=== PATIENT | male | born 1950 | race Caucasian/White ===

== ENCOUNTER 2024-01-20 21:37 | Emergency (ER) | payer MEDICARE, OTHER ==
--- NOTE | 2024-01-20 21:43 | ED ---
GI Bleed HPI - General Stated complaint: GI issues Time Seen by Provider: 01/20/24 21:42 Source: RN notes reviewed, old records reviewed Mode of arrival: EMS Limitations: no limitations - History of Present Illness Initial comments: This is a 73-year-old male presenting for evaluation regards to history per staff of coffee-ground emesis. Patient has no pain or observed hematemesis here in the emergency department he does have history of GI bleed. No blood thinners. Patient has no complaints, patient is a mildly poor historian history obtained from staff records and EMS MD complaint: coffee ground emesis -: hour(s) Severity scale (1-10): 3 Quality: painless Consistency: constant Improves with: none, bowel movement Worsens with: none Context: history of GI bleed Associated Symptoms: nausea, vomiting - Related Data Home Medications Medication Instructions Recorded Confirmed Albuterol Nebulized [Ventolin 2.5 mg INHALATION RT-Q6H PRN 05/17/22 05/17/22 Nebulized] Aspirin 81 mg PO DAILY 05/17/22 05/17/22 Cholecalciferol [Vitamin D3 (25 25 mcg PO DAILY 05/17/22 05/17/22 Mcg = 1000 Iu)] Clopidogrel [Plavix] 75 mg PO DAILY 05/17/22 05/17/22 Ipratropium Nebulized [Atrovent 0.5 mg INHALATION RT-Q6H PRN 05/17/22 05/17/22 Nebulized 0.2 MG/ML] Lactose-Reduced Food [Ensure Plus] 240 ml PO BID@0900,1700 05/17/22 05/17/22 Magnesium Hydroxide [Milk of 2,400 mg PO ONCE PRN 05/17/22 05/17/22 Magnesia] QUEtiapine [SEROquel] 25 mg PO HS 05/17/22 05/17/22 Simvastatin [Zocor] 40 mg PO HS 05/17/22 05/17/22 Venlafaxine HCl [Effexor] 75 mg PO HS 05/17/22 05/17/22 Zinc Gluconate [Zinc] 50 mg PO DAILY 05/17/22 05/17/22 carvediloL [Coreg] 1.5625 mg PO BID 05/17/22 05/17/22 oxyBUTYnin chloride [Ditropan XL] 10 mg PO DAILY 05/17/22 05/17/22 Allergies Allergy/AdvReac Type Severity Reaction Status Date / Time No Known Allergies Allergy Verified 05/17/22 20:21 Review of Systems ROS Statement: Those systems with pertinent positive or pertinent negative responses have been documented in the HPI. ROS Other: All systems not noted in ROS Statement are negative. Past Medical History Past Medical History: CVA/TIA, Hypertension History of Any Multi-Drug Resistant Organisms: None Reported Past Psychological History: Depression Smoking Status: Former smoker Past Alcohol Use History: None Reported, Unable to Obtain Past Drug Use History: Unable to Obtain General Exam Limitations: altered mental status General appearance: alert, in no apparent distress, anxious Head exam: Present: atraumatic, normocephalic, normal inspection Eye exam: Present: normal appearance, PERRL, EOMI. Absent: scleral icterus, conjunctival injection, periorbital swelling ENT exam: Present: normal exam, mucous membranes moist Neck exam: Present: normal inspection. Absent: tenderness, meningismus, lymphadenopathy Respiratory exam: Present: normal lung sounds bilaterally. Absent: respiratory distress, wheezes, rales, rhonchi, stridor Cardiovascular Exam: Present: regular rate, normal rhythm, normal heart sounds. Absent: systolic murmur, diastolic murmur, rubs, gallop, clicks GI/Abdominal exam: Present: soft, normal bowel sounds. Absent: distended, tenderness, guarding, rebound, rigid Extremities exam: Present: normal inspection, full ROM, normal capillary refill. Absent: tenderness, pedal edema, joint swelling, calf tenderness Back exam: Present: normal inspection Neurological exam: Present: alert, oriented X3, CN II-XII intact Psychiatric exam: Present: normal affect, normal mood Skin exam: Present: warm, dry, intact, normal color. Absent: rash Course Vital Signs 01/20/24 01/20/24 21:38 22:51 Temperature 97.3 F L Pulse Rate 114 H 111 H Respiratory 18 18 Rate Blood Pressure 154/90 130/90 O2 Sat by Pulse 96 95 Oximetry - Reevaluation(s) Reevaluation #1: 01/20/24 22:09 Medical records reviewed Reevaluation #2: 01/20/24 22:35 Patient symptoms improved with no coffee-ground emesis here in the ER Reevaluation #3: 01/20/24 22:35 Informed of results and questions answered Reevaluation #4: Was pt. sent in by a medical professional or institution (, JULIO, SILVERWARE BUFFING MACHINE OPERATOR, urgent care, hospital, or fci...) When possible be specific @ -no Did you speak to anyone other than the patient for history (EMS, parent, family, police, friend...)? What history was obtained from this source @ -no Did you review nursing and triage notes (agree or disagree)? Why? @ -agree Are old charts reviewed (outside hosp., previous admission, EMS record, old EKG, old radiological studies, urgent care reports/EKG's, fci records)? Report findings @ -yes Differential Diagnosis (chest pain, altered mental status, abdominal pain women, abdominal pain men, vaginal bleeding, weakness, fever, dyspnea, syncope, headache, dizziness, GI bleed, back pain, seizure, CVA, palpatations, mental health, musculoskeletal)? @ -prior EKG interpreted by me (3pts min.). @ -yes X-rays interpreted by me (1pt min.). @ -no CT interpreted by me (1pt min.). @ -no U/S interpreted by me (1pt. min.). @ -no What testing was considered but not performed or refused? (CT, X-rays, U/S, labs)? Why? @ -none What meds were considered but not given or refused? Why? @ -none Did you discuss the management of the patient with other professionals (professionals i.e. JULIO Gillespie, SILVERWARE BUFFING MACHINE OPERATOR, lab, RT, psych nurse, social contact worker, narrow gauge operator, teacher, humane officer, correctional counselor/case manager)? Give summary @ -no Was smoking cessation discussed for >3mins.? @ -no Was critical care preformed (if so, how long)? @ -no Were there social determinants of health that impacted care today? How? (Homelessness, low income, unemployed, alcoholism, drug addiction, transportation, low edu. Level, literacy, decrease access to med. care, custodial, rehab)? @ -none Was there de-escalation of care discussed even if they declined (Discuss DNR or withdrawal of care, Hospice)? DNR status @ -no What co-morbidities impacted this encounter? (DM, HTN, Smoking, COPD, CAD, Cancer, CVA, ARF, Chemo, Hep., AIDS, mental health diagnosis, sleep apnea, morbid obesity)? @ -none Was patient admitted / discharged? Hospital course, mention meds given and route, prescriptions, significant lab abnormalities, going to OR and other p ertinent info. @ - 73 male to the ER for evaluation with suspected coffee ground emesis with possible GI bleed does not have any coffee-ground emesis here in the ER normal hemoglobin normal vital signs patient can be discharged home Discharge Undiagnosed new problem with uncertain prognosis? @ -no Drug Therapy requiring intensive monitoring for toxicity (Heparin, Nitro, Insulin, Cardizem)? @ -no Were any procedures done? @ -no Diagnosis/symptom? @ -Normal exam Acute, or Chronic, or Acute on Chronic? @ -Acute Uncomplicated (without systemic symptoms) or Complicated (systemic symptoms)? @ -Complicated Side effects of treatment? @ -no Exacerbation, Progression, or Severe Exacerbation? @ -exacerbation Poses a threat to life or bodily function? How? (Chest pain, [place], HI, pneumonia, PE, COPD, DKA, ARF, appy, cholecystitis, CVA, Diverticulitis, Homicidal, Suicidal, threat to staff... and all critical care pts) @ -Extremes of age Reevaluation #5: Differential GI Bleed: Esophageal varices, aortoenteric fistula, Gia-Daigle, gastritis, peptic ulcer disease, diverticulosis, inflammatory bowel disease, hemorrhoids, fissure, colitis, malignancy, Meckel's diverticulum, this is not meant to be an all- inclusive list. Medical Decision Making - Medical Decision Making 73 male to the ER for evaluation with suspected coffee ground emesis with possible GI bleed does not have any coffee-ground emesis here in the ER normal hemoglobin normal vital signs patient can be discharged home - Lab Data Result diagrams: 01/20/24 21:47 01/20/24 21:47 Lab Results 01/20/24 01/20/24 01/20/24 Range/Units 21:47 21:47 21:47 WBC 10.0 (3.8-10.6) k/uL RBC 5.47 (4.30-5.90) m/uL Hgb 16.6 (13.0-17.5) gm/dL Hct 51.6 (39.0-53.0) % MCV 94.3 (80.0-100.0) fL MCH 30.3 (25.0-35.0) pg MCHC 32.1 (31.0-37.0) g/dL RDW 15.1 (11.5-15.5) % Plt Count 188 (150-450) k/uL MPV 8.5 Neutrophils % 75 % Lymphocytes % 13 % Monocytes % 7 % Eosinophils % 3 % Basophils % 1 % Neutrophils # 7.5 (1.3-7.7) k/uL Lymphocytes # 1.3 (1.0-4.8) k/uL Monocytes # 0.7 (0-1.0) k/uL Eosinophils # 0.3 (0-0.7) k/uL Basophils # 0.1 (0-0.2) k/uL PT 10.5 (10.0-12.5) sec INR 1.0 (<1.2) APTT 25.1 (22.0-30.0) sec Sodium 139 (137-145) mmol/L Potassium 4.3 (3.5-5.1) mmol/L Chloride 106 (98-107) mmol/L Carbon Dioxide 26 (22-30) mmol/L Anion Gap 7 mmol/L BUN 25 H (9-20) mg/dL Creatinine 0.78 (0.66-1.25) mg/dL Est GFR (CKD-EPI)AfAm >90 (>60 ml/min/1.73 sqM) Est GFR (CKD-EPI)NonAf >90 (>60 ml/min/1.73 sqM) Glucose 113 H (74-99) mg/dL Lactic Ac Sepsis Rflx Plasma Lactic Acid Samy (0.7-2.0) mmol/L Calcium 9.4 (8.4-10.2) mg/dL Magnesium 2.0 (1.6-2.3) mg/dL Total Bilirubin 0.3 (0.2-1.3) mg/dL AST 28 (17-59) U/L ALT 26 (4-49) U/L Alkaline Phosphatase 98 (38-126) U/L Ammonia (<30) umol/L Troponin I (0.000-0.034) ng/mL Total Protein 7.5 (6.3-8.2) g/dL Albumin 4.3 (3.5-5.0) g/dL Lipase 39 (23-300) U/L Blood Type Blood Type Recheck Bld Type Recheck Status Antibody Screen Spec Expiration Date 01/20/24 01/20/24 01/20/24 Range/Units 21:47 21:47 21:47 WBC (3.8-10.6) k/uL RBC (4.30-5.90) m/uL Hgb (13.0-17.5) gm/dL Hct (39.0-53.0) % MCV (80.0-100.0) fL MCH (25.0-35.0) pg MCHC (31.0-37.0) g/dL RDW (11.5-15.5) % Plt Count (150-450) k/uL MPV Neutrophils % % Lymphocytes % % Monocytes % % Eosinophils % % Basophils % % Neutrophils # (1.3-7.7) k/uL Lymphocytes # (1.0-4.8) k/uL Monocytes # (0-1.0) k/uL Eosinophils # (0-0.7) k/uL Basophils # (0-0.2) k/uL PT (10.0-12.5) sec INR (<1.2) APTT (22.0-30.0) sec Sodium (137-145) mmol/L Potassium (3.5-5.1) mmol/L Chloride (98-107) mmol/L Carbon Dioxide (22-30) mmol/L Anion Gap mmol/L BUN (9-20) mg/dL Creatinine (0.66-1.25) mg/dL Est GFR (CKD-EPI)AfAm (>60 ml/min/1.73 sqM) Est GFR (CKD-EPI)NonAf (>60 ml/min/1.73 sqM) Glucose (74-99) mg/dL Lactic Ac Sepsis Rflx Plasma Lactic Acid Samy 2.1 H* (0.7-2.0) mmol/L Calcium (8.4-10.2) mg/dL Magnesium (1.6-2.3) mg/dL Total Bilirubin (0.2-1.3) mg/dL AST (17-59) U/L ALT (4-49) U/L Alkaline Phosphatase (38-126) U/L Ammonia <9 (<30) umol/L Troponin I <0.012 (0.000-0.034) ng/mL Total Protein (6.3-8.2) g/dL Albumin (3.5-5.0) g/dL Lipase (23-300) U/L Blood Type O Positive Blood Type Recheck O Pos Bld Type Recheck Status No Antibody Screen NEGATIVE Spec Expiration Date 01/23/2024 - 234601/20/24 Range/Units 22:11 WBC (3.8-10.6) k/uL RBC (4.30-5.90) m/uL Hgb (13.0-17.5) gm/dL Hct (39.0-53.0) % MCV (80.0-100.0) fL MCH (25.0-35.0) pg MCHC (31.0-37.0) g/dL RDW (11.5-15.5) % Plt Count (150-450) k/uL MPV Neutrophils % % Lymphocytes % % Monocytes % % Eosinophils % % Basophils % % Neutrophils # (1.3-7.7) k/uL Lymphocytes # (1.0-4.8) k/uL Monocytes # (0-1.0) k/uL Eosinophils # (0-0.7) k/uL Basophils # (0-0.2) k/uL PT (10.0-12.5) sec INR (<1.2) APTT (22.0-30.0) sec Sodium (137-145) mmol/L Potassium (3.5-5.1) mmol/L Chloride (98-107) mmol/L Carbon Dioxide (22-30) mmol/L Anion Gap mmol/L BUN (9-20) mg/dL Creatinine (0.66-1.25) mg/dL Est GFR (CKD-EPI)AfAm (>60 ml/min/1.73 sqM) Est GFR (CKD-EPI)NonAf (>60 ml/min/1.73 sqM) Glucose (74-99) mg/dL Lactic Ac Sepsis Rflx Y Plasma Lactic Acid Samy (0.7-2.0) mmol/L Calcium (8.4-10.2) mg/dL Magnesium (1.6-2.3) mg/dL Total Bilirubin (0.2-1.3) mg/dL AST (17-59) U/L ALT (4-49) U/L Alkaline Phosphatase (38-126) U/L Ammonia (<30) umol/L Troponin I (0.000-0.034) ng/mL Total Protein (6.3-8.2) g/dL Albumin (3.5-5.0) g/dL Lipase (23-300) U/L Blood Type Blood Type Recheck Bld Type Recheck Status Antibody Screen Spec Expiration Date - EKG Data -: EKG Interpreted by Me (EKG is Sinus tachycardia 109 MN 180 QRS 107 QTc 405) Disposition Clinical Impression: Nausea and vomiting Disposition: HOME SELF-CARE Condition: Good Instructions (If sedation given, give patient instructions): Acute Nausea and Vomiting (ED) Is patient prescribed a controlled substance at d/c from ED?: No Referrals: Guanakito Méndez MD [Primary Care Provider] - 1-2 days Time of Disposition: 22:30
[2024-01-20 21:44] VITALS: RESP 18; TEMP 97.3
[2024-01-20 21:59] LABS: Basophils # (A) 0.1 k/uL (0-0.2); Basophils % (A) 1 %; Eosinophils # (A) 0.3 k/uL (0-0.7); Eosinophils % (A) 3 %; HCT 51.6 % (39.0-53.0); HGB 16.6 gm/dL (13.0-17.5); Lymphocytes # (A) 1.3 k/uL (1.0-4.8); Lymphocytes % (A) 13 %; MCH 30.3 pg (25.0-35.0); MCHC 32.1 g/dL (31.0-37.0); MCV 94.3 fL (80.0-100.0); Mean Platelet Volume 8.5; Monocytes # (A) 0.7 k/uL (0-1.0); Monocytes % (A) 7 %; Neutrophils # (A) 7.5 k/uL (1.3-7.7); Neutrophils % (A) 75 %; Platelet Count 188 k/uL (150-450); RBC 5.47 m/uL (4.30-5.90); RDW 15.1 % (11.5-15.5)
[2024-01-20 22:08] LABS: ALT 26 U/L (4-49); AST 28 U/L (17-59); African American GFR (CKD) >90 (>60 ml/min/1.73 sqM); Albumin 4.3 g/dL (3.5-5.0); Alkaline Phosphatase 98 U/L (38-126); Anion Gap 7 mmol/L; Blood Urea Nitrogen 25 mg/dL (9-20); Calcium 9.4 mg/dL (8.4-10.2); Carbon Dioxide 26 mmol/L (22-30); Chloride 106 mmol/L (98-107); Glucose 113 mg/dL (74-99); Lipase 39 U/L (23-300); Non-African American GFR(CKD) >90 (>60 ml/min/1.73 sqM); Partial Thromboplastin Time 25.1 sec (22.0-30.0); Potassium 4.3 mmol/L (3.5-5.1); Prothrombin Time 10.5 sec (10.0-12.5); Sodium 139 mmol/L (137-145); Total Bilirubin 0.3 mg/dL (0.2-1.3); Total Protein 7.5 g/dL (6.3-8.2)
[2024-01-20 22:11] LABS: Lactic Acid, Venous 2.1 mmol/L (0.7-2.0)
[2024-01-20] MEDS: PANTOPRAZOLE 40 MG/10 ML VIAL IVP STA (22:17)
[2024-01-20] MEDS: ONDANSETRON 4 MG/2 ML VIAL IVP STA (22:17)
[2024-01-20] MEDS: SODIUM CHLORIDE 0.9% 1,000 ML IV STA (22:17)
[2024-01-20 23:06] VITALS: BP 130/90; PULSE 111
[2024-01-20] MEDS: LORazepam 2 MG/ML INJ IV STA (23:32)
== END 2024-01-21 01:07 | disposition home or self-care (01) ==
LOC: EC 21:37
DX: R11.2 Nausea with vomiting, unspecified (principal); Z87.891 Personal history of nicotine dependence
CPT/HCPCS: 36415; 86900; 86901; 80053; 82140; 83605; 83690; 83735; 84484; 85025; 85610; 85730; 86850; 99285; 96374; 96375 ×2; 96361; J2060; J2405; J2470; 93005

== ENCOUNTER 2024-06-19 07:01 | Emergency (ER) | payer MEDICARE, OTHER ==
[2024-06-19] MEDS ORDERED: Kcentra / Balfaxar PER PHARMACY 1 EACH MISC MISCELLANE PRN (07:11)
[2024-06-19] MEDS: ONDANSETRON 4 MG/2 ML VIAL IVP STA (07:24)
[2024-06-19] MEDS: PANTOPRAZOLE 40 MG/10 ML VIAL IVP STA ×2 (07:29→07:30)
[2024-06-19] MEDS: SODIUM CHLORIDE 0.9% 1,000 ML IV ONE (07:37)
[2024-06-19] MEDS: EMPTY BAG 1 BAG with HUMAN PROTHROMBN CMPL-BALFAXAR 2,080 UNIT IV ONE (07:40)
[2024-06-19] MEDS: OCTREOTIDE 100 MCG/ML INJ IVP STA (07:43)
--- NOTE | 2024-06-19 07:44 | ED ---
General Adult HPI - General Chief complaint: GI Bleed Stated complaint: Vomiting Blood Time Seen by Provider: 06/19/24 07:08 Source: patient, EMS, RN notes reviewed, old records reviewed Mode of arrival: EMS - History of Present Illness Initial comments: Patient is a 73-year-old male who presents emergency department for symptoms of upper GI bleed. Patient is on blood thinners. He does have a guardian. Unknown baseline mental status however patient does have a history of a stroke with residual right sided contractures and deficits as well as confusion that seems chronic per charts. Patient is on Eliquis for atrial fibrillation. Apparently patient had 2 episodes of brighter red hematemesis this morning. They called for transfer to the ER. Had an additional episode here in the ER. Patient is a limited historian overall due to his past medical history. Per charts, he is a full code with a guardian service as his guardian. Presents for further evaluation at this time. Was originally placed in room 24 however patient was transferred to room T2 due to hypotension in the setting of upper GI bleed. EMS confirmed this is patient's baseline mental status. - Related Data Home Medications Medication Instructions Recorded Confirmed Aspirin 81 mg PO DIRECTED 05/17/22 04/26/24 Cholecalciferol [Vitamin D3 (25 25 mcg PO DAILY@89905/17/22 04/26/24 Mcg = 1000 Iu)] Lactose-Reduced Food [Ensure Plus] 240 ml PO TID@,,05/17/22 04/26/24 carvediloL [Coreg] 3.125 mg PO BID@0900,209905/17/22 04/26/24 Acetaminophen [Tylenol] 650 mg PO Q4H PRN 04/26/24 04/26/24 Apixaban [Eliquis] 5 mg PO DIRECTED 04/26/24 04/26/24 Atorvastatin [Lipitor] 40 mg PO HS 04/26/24 04/26/24 Docusate [Colace] 100 mg PO HS@209904/26/24 04/26/24 Ferrous Sulfate [Feosol] 325 mg PO DAILY@0900 04/26/24 04/26/24 Gabapentin [Neurontin] 100 mg PO TID@,,04/26/24 04/26/24 Loratadine [Claritin] 10 mg PO DAILY PRN 04/26/24 04/26/24 Oseltamivir [Tamiflu] 75 mg PO DAILY@89904/26/24 04/26/24 Pantoprazole [Protonix] 40 mg PO BID@899,209904/26/24 04/26/24 Sodium Bicarbonate 325 mg PO BID PRN 04/26/24 04/26/24 Sucralfate [Carafate] 1 gm PO QID@09,13,17,21 04/26/24 04/26/24 Venlafaxine HCl [Effexor XR] 75 mg PO DAILY@89904/26/24 04/26/24 Venlafaxine HCl [Effexor XR] 150 mg PO DAILY@89904/26/24 04/26/24 bisacodyL 10 mg RECTAL DAILY PRN 04/26/24 04/26/24 busPIRone HCl [Buspar] 5 mg PO BID@0900,209904/26/24 04/26/24 levETIRAcetam [Keppra] 500 mg PO BID@0900,209904/26/24 04/26/24 polyethylene glycoL 3350 [Miralax] 17 gm PO DAILY PRN 04/26/24 04/26/24 Allergies Allergy/AdvReac Type Severity Reaction Status Date / Time No Known Allergies Allergy Verified 06/19/24 07:25 Review of Systems ROS Statement: Those systems with pertinent positive or pertinent negative responses have been documented in the HPI. General: Appears in moderate distress secondary to hematemesis HEAD: Normal with no signs of head trauma. EYES: EOMI ENT: Hearing grossly intact. Patient does have dried blood around his mouth and in the naris. He is actively having hematemesis. RESPIRATORY: Clear breath sounds bilaterally. No wheezes, rales, or rhonchi. C/V: Irregular rate and rhythm. S1 and S2 auscultated. Peripheral pulses are weaker 1-1/2 throughout. ABD: Abd is soft, nontender, nondistended EXT: Normal range of motion, no obvious deformity SKIN: No rashes or lesions observed on exposed skin. NEURO: Alert and oriented x 1-2. Unknown baseline however patient's chart does state that he has a history of confusion secondary to the prior stroke. ROS Other: All systems not noted in ROS Statement are negative. 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, nonrheum atic mitral valve isufficiency, History of Any Multi-Drug Resistant Organisms: None Reported Past Surgical History: Heart Catheterization With Stent Past Psychological History: No Psychological Hx Reported, Depression Smoking Status: Former smoker Past Alcohol Use History: None Reported, Unable to Obtain Past Drug Use History: Unable to Obtain Course Vital Signs 06/19/24 06/19/24 06/19/24 07:19 07:31 07:38 Temperature 98.5 F Pulse Rate 133 H 156 H 140 H Respiratory 26 H 26 H 30 H Rate Blood Pressure 69/53 52/33 72/54 O2 Sat by Pulse 91 L 90 L Oximetry 06/19/24 06/19/24 06/19/24 07:45 07:55 08:02 Temperature 97.3 F L Pulse Rate 105 H 123 H 112 H Respiratory 36 H 30 H 26 H Rate Blood Pressure 94/68 80/58 100/75 O2 Sat by Pulse 91 L Oximetry 06/19/24 06/19/24 08:15 08:21 Temperature 97.8 F 97.8 F Pulse Rate 98 98 Respiratory 28 H 28 H Rate Blood Pressure 91/65 91/65 O2 Sat by Pulse 100 100 Oximetry Medical Decision Making - Medical Decision Making Was pt. sent in by a medical professional or institution (, PA, DAIRY NUTRITION SPECIALIST, urgent care, hospital, or chcf...) When possible be specific @ -Sent by [facility] on the [place] Did you speak to anyone other than the patient for history (EMS, parent, family, police, friend...)? What history was obtained from this source @ -Spoke with EMS who are the primary historians.I did contact the patient's about the guardian service and they were in agreement with the plan for transfer and for treatment. Confirmed patient is full code. Did you review nursing and triage notes (agree or disagree)? Why? @ -I reviewed and agree with nursing and triage notes Were old charts reviewed (outside hosp., previous admission, EMS record, old EKG, old radiological studies, urgent care reports/EKG's, chcf records)? Report findings @ -Old charts reviewed including paperwork from the nursing facility. Shows he does have a history of CVA, can chronic confusion, as well as A-fib with RVR. Patient is on Eliquis. Search for any documentation of possible esophageal varices however this was not documented anywhere. States that patient has a history of Avitia's esophagus as well as esophageal bleeding but no specific mention of varices. Patient cannot provide any history regarding this. We have no history of EGDs here. Differential Diagnosis (chest pain, altered mental status, abdominal pain women, abdominal pain men, vaginal bleeding, weakness, fever, dyspnea, syncope, headache, dizziness, GI bleed, back pain, seizure, CVA, palpatations, mental health, musculoskeletal)? @ -Differential GI Bleed: Esophageal varices, aortoenteric fistula, G[place], gastritis, peptic ulcer disease, diverticulosis, inflammatory bowel disease, hemorrhoids, fissure, colitis, malignancy, Meckel's diverticulum, this is not meant to be an all- inclusive list. EKG interpreted by me (3pts min.). @ -As above X-rays interpreted by me (1pt min.). @ -Chest x-ray shows no obvious acute cardiopulmonary process. CT interpreted by me (1pt min.). @ -None done U/S interpreted by me (1pt. min.). @ -None done What testing was considered but not performed or refused? (CT, X-rays, U/S, labs)? Why? @ -None What meds were considered but not given or refused? Why? @ -Considered etomidate and cardioversion however patient's A-fib with RVR seemed to improve with administering blood and I do suspect that the hypotension was secondary to a mixture of both A-fib with RVR as well as the acute hematemesis and likely anemia. We will continue to monitor but as patient is responding with other treatments, we will hold off on cardioversion at this time. Did you discuss the management of the patient with other professionals (professionals i.e. , PA, DAIRY NUTRITION SPECIALIST, lab, RT, psych nurse, health social work professor, chief telephone operator, teacher, audit officer, ed case manager)? Give summary @ -Discussed with at [facility] who accepted the patient as we do not have gastroenterology at our facility. Patient was immediately accepted due to the patient being critical. They were in agreement with management. Was smoking cessation discussed for >3mins.? @ -No Was critical care preformed (if so, how long)? @ -Yes, 42 minutes Were there social determinants of health that impacted care today? How? (Homelessness, low income, unemployed, alcoholism, drug addiction, transportation, low edu. Level, literacy, decrease access to med. care, residential, rehab)? @ -No Was there de-escalation of care discussed even if they declined (Discuss DNR or withdrawal of care, Hospice)? DNR status @ -No What co-morbidities impacted this encounter? (DM, HTN, Smoking, COPD, CAD, Cancer, CVA, ARF, Chemo, Hep., AIDS, mental health diagnosis, sleep apnea, morbid obesity)? @ -CVA, chronic confusion, A-fib on Eliquis, upper GI bleeds Was patient admitted / discharged? Hospital course, mention meds given and route, prescriptions, significant lab abnormalities, going to OR and other pertinent info. @ -Patient presents emergency department for upper GI bleed. Is a poor historian which seems to be chronic for him. He is on Eliquis. Patient's blood pressure on arrival was hypotensive. Had 2 active episodes of hematemesis prior to arrival and is currently experiencing a third here in the department. No IV access obtained by EMS. Vitals otherwise remarkable for tachycardia. He does have a history of A-fib. Patient placed in trauma bay 2 where I evaluated him. Hematemesis is stopped at this time. Does have dried blood in his nose as well as around his mouth. He is able to talk however he is confused which seems to be baseline for him. Patient is hypotensive and tachycardic. We will obtain general GI bleed workup, as well as screening chest x-ray, EKG. Patient will also be administered Kcentra due to the life-threatening bleed that I believed to be occurring, as well as octreotide as I am uncertain if the patient is experiencing an upper GI bleed from esophageal varices or not. Patient initially started on IV fluids until we can obtain 2 units of O- blood. He was in agreement with this plan. EKG does shows A-fib with RVR. He is hypotensive however with the blood hanging, patient's blood pressures do recover to a MAP of at least 65. We will continue to monitor the situation. Patient will be started on amiodarone due to the hypotension but also A-fib with RVR. Cardioversion was considered however as the patient is likely experiencing the hypotension and A-fib with RVR that is acute on chronic secondary to the GI bleed, we will treat that initially. Labs have yet to return however patient requires transfer as we do not have gastroenterology at our facility. I spoke with the on-call ER physician at [facility], Dr. Ramos who accepted the transfer. Patient has a total of 4 peripheral IVs at this time. Patient is receiving infusions of octreotide, Kcentra, Packed red blood cells. Patient initiated on amiodarone drip. No further episodes of hematemesis here in the department. Patient's blood pressure is now averaging maps of over 65 with systolics in the 80s. Second unit of packed red blood cells is being hung prior to transfer. He has received 1 unit of packed red blood cells here in the department. This is in addition to the standard dosing for amiodarone for A-fib with RVR and standard dosing of octreotide for upper GI bleed. Patient will be transferred in serious condition. I did speak with the patient's guardian service who was in agreement with plan for transfer. Patient's labs started to return while patient was still here however hemoglobin is still pending. Lactic acid is elevated to 6.2 likely secondary from A-fib with RVR as well as acute upper GI bleed. BUN is elevated as well with a normal creatinine supporting an upper GI bleed. [facility] be [facility]. Patient's hemoglobin did return after patient was already transferred. He does have worsening anemia at 8.0 for his hemoglobin level, on June 15, 2024 it was 8.5. Still concern for significant upper GI bleed considering patient's pre sentation, and likely delay in drop in hemoglobin as he had 3 episodes of hematemesis all within the last 2 hours. Undiagnosed new problem with uncertain prognosis? @ -No Drug Therapy requiring intensive monitoring for toxicity (Heparin, Nitro, Insulin, Cardizem)? @ -No Were any procedures done? @ -No Diagnosis/symptom? @ -Upper GI bleed,Hematemesis, A-fib with RVR Acute, or Chronic, or Acute on Chronic? @ -Acute Uncomplicated (without systemic symptoms) or Complicated (systemic symptoms)? @ -Complicated Side effects of treatment? @ -No Exacerbation, Progression, or Severe Exacerbation? @ -No Poses a threat to life or bodily function? How? (Chest pain, [place], [place], pneumonia, PE, COPD, DKA, ARF, appy, cholecystitis, CVA, Diverticulitis, Homicidal, Suicidal, threat to staff... and all critical care pts) @ -Yes - Lab Data Result diagrams: 06/19/24 07:26 06/19/24 07:26 Lab Results 06/19/24 06/19/24 06/19/24 Range/Units 07:26 07: 07:26 WBC 12.45 H (4.50-10.00) 10*3/uL RBC 4.05 L (4.40-5.60) 10*6/uL Hgb 8.0 L (13.0-17.0) g/dL Hct 29.4 L (39.6-50.0) % MCV 72.6 L (80.0-97.0) fL MCH 19.8 L (27.0-32.0) pg MCHC 27.2 L (32.0-37.0) g/dL Plt Count 536 H (140-440) 10*3/uL MPV 10.2 (9.5-12.2) fL Immature Gran % (Auto) 1.1 % Neutrophils % 69.4 % Lymphocytes % 17.6 % Monocytes % 10.3 % Eosinophils % 0.8 % Basophils % 0.8 % Immature Gran # 0.14 H (0.00-0.04) 10*3/uL Neutrophils # 8.64 H (1.80-7.70) 10*3/uL Lymphocytes # 2.19 (0.90-5.00) 10*3/uL Monocytes # 1.28 H (0.20-1.00) 10*3/uL Eosinophils # 0.10 (0.04-0.35) 10*3/uL Basophils # 0.10 (0.00-0.10) 10*3/uL PT 12.1 (10.0-12.5) sec INR 1.1 (<1.2) APTT 21.6 L (22.0-30.0) sec Sodium 138 (137-145) mmol/L Potassium 4.6 (3.5-5.1) mmol/L Chloride 103 (98-107) mmol/L Carbon Dioxide 23 (22-30) mmol/L Anion Gap 12 mmol/L BUN 31 H (9-20) mg/dL Creatinine 0.88 (0.66-1.25) mg/dL Est GFR (CKD-EPI)AfAm >90 (>60 ml/min/1.73 sqM) Est GFR (CKD-EPI)NonAf 86 (>60 ml/min/1.73 sqM) Glucose 131 H (74-99) mg/dL Plasma Lactic Acid Samy (0.7-2.0) mmol/L Calcium 9.2 (8.4-10.2) mg/dL Total Bilirubin 0.4 (0.2-1.3) mg/dL AST 21 (17-59) U/L ALT 17 (4-49) U/L Alkaline Phosphatase 59 (38-126) U/L Total Protein 5.4 L (6.3-8.2) g/dL Albumin 3.0 L (3.5-5.0) g/dL Amylase 42 (30-110) U/L Lipase 69 (23-300) U/L // Range/Units 07:26 WBC (4.50-10.00) 10*3/uL RBC (4.40-5.60) 10*6/uL Hgb (13.0-17.0) g/dL Hct (39.6-50.0) % MCV (80.0-97.0) fL MCH (27.0-32.0) pg MCHC (32.0-37.0) g/dL Plt Count (140-440) 10*3/uL MPV (9.5-12.2) fL Immature Gran % (Auto) % Neutrophils % % Lymphocytes % % Monocytes % % Eosinophils % % Basophils % % Immature Gran # (0.00-0.04) 10*3/uL Neutrophils # (1.80-7.70) 10*3/uL Lymphocytes # (0.90-5.00) 10*3/uL Monocytes # (0.20-1.00) 10*3/uL Eosinophils # (0.04-0.35) 10*3/uL Basophils # (0.00-0.10) 10*3/uL PT (10.0-12.5) sec INR (<1.2) APTT (22.0-30.0) sec Sodium (137-145) mmol/L Potassium (3.5-5.1) mmol/L Chloride (98-107) mmol/L Carbon Dioxide (22-30) mmol/L Anion Gap mmol/L BUN (9-20) mg/dL Creatinine (0.66-1.25) mg/dL Est GFR (CKD-EPI)AfAm (>60 ml/min/1.73 sqM) Est GFR (CKD-EPI)NonAf (>60 ml/min/1.73 sqM) Glucose (74-99) mg/dL Plasma Lactic Acid Samy 6.2 H* (0.7-2.0) mmol/L Calcium (8.4-10.2) mg/dL Total Bilirubin (0.2-1.3) mg/dL AST (17-59) U/L ALT (4-49) U/L Alkaline Phosphatase (38-126) U/L Total Protein (6.3-8.2) g/dL Albumin (3.5-5.0) g/dL Amylase (30-110) U/L Lipase (23-300) U/L - EKG Data -: EKG Interpreted by Me EKG Comments: 12-lead Electrocardiogram Interpretation Note EKG was reviewed and interpreted by myself. 12-lead ECG performed at 0735 is interpreted by me as revealing atrial fibrillation with RVR at a rate of 148 beats per minute. [place] is normal. MD interval is unobtainable, QRS duration is 105 ms, QTc is 3 1050 ms.. There were no ST or T wave abnormalities to suggest myocardial ischemia or injury. R wave progression across the precordium was delayed. By my interpretation this EKG is non-diagnostic for acute ischemia. Critical Care Time Critical Care Time: Yes Total Critical Care Time: 42 Disposition Clinical Impression: Upper GI bleeding, Hematemesis, Hypotension, Atrial fibrillation with RVR Disposition: OTHER INSTITUTION NOT DEFINED Condition: Serious Referrals: Guanakito Méndez MD [Primary Care Provider] - 1-2 days Time of Disposition: 08:00 - Out of Hospital Transfer - Req. Specs Out of Hospital Transfer - Requested Specifics: Other Emergency Center (Transfer to [facility] for escalation of care as we do not have gastroenterology available for an upper GI bleed and hematemesis)
[2024-06-19 07:48] LABS: Basophils % (A) 0.8 %; Eosinophils % (A) 0.8 %; HCT 29.4 % (39.6-50.0); Lymphocytes # (A) 2.19 10*3/uL (0.90-5.00); Lymphocytes % (A) 17.6 %; MCH 19.8 pg (27.0-32.0); MCHC 27.2 g/dL (32.0-37.0); MCV 72.6 fL (80.0-97.0); Mean Platelet Volume 10.2 fL (9.5-12.2); Monocytes # (A) 1.28 10*3/uL (0.20-1.00); Monocytes % (A) 10.3 %; Neutrophils # (A) 8.64 10*3/uL (1.80-7.70); Neutrophils % (A) 69.4 %; Platelet Count 536 10*3/uL (140-440); RBC 4.05 10*6/uL (4.40-5.60); RDW 19.6 % (11.5-14.5); WBC 12.45 10*3/uL (4.50-10.00)
[2024-06-19] MEDS: OCTREOTIDE 500 MCG in SODIUM CHLORIDE 0.9% 250 ML IV ONE (07:50)
[2024-06-19] MEDS: DEXTROSE 5% IN WATER 100 ML with AMIODARONE 150 MG IV ONE (07:54)
[2024-06-19 08:03] LABS: ALT 17 U/L (4-49); AST 21 U/L (17-59); African American GFR (CKD) >90 (>60 ml/min/1.73 sqM); Alkaline Phosphatase 59 U/L (38-126); Amylase 42 U/L (30-110); Anion Gap 12 mmol/L; Blood Urea Nitrogen 31 mg/dL (9-20); Calcium 9.2 mg/dL (8.4-10.2); Carbon Dioxide 23 mmol/L (22-30); Chloride 103 mmol/L (98-107); Glucose 131 mg/dL (74-99); Lipase 69 U/L (23-300); Non-African American GFR(CKD) 86 (>60 ml/min/1.73 sqM); Potassium 4.6 mmol/L (3.5-5.1); Sodium 138 mmol/L (137-145); Total Bilirubin 0.4 mg/dL (0.2-1.3); Total Protein 5.4 g/dL (6.3-8.2)
--- NOTE | 2024-06-19 08:07 | XR ---
EXAMINATION TYPE: XR chest 1V portable DATE OF EXAM: 06/19/2024 8:03 AM COMPARISON: None TECHNIQUE: XR chest 1V portable Portable AP radiograph of the chest. CLINICAL INDICATION:Male, 73 years old with history of abdominal pain; FINDINGS: Lungs/Pleura: There is no evidence of pleural effusion, focal consolidation, or pneumothorax. Left m idlung calcified granuloma. Pulmonary vascularity: Unremarkable. Heart/mediastinum: Cardiomediastinal silhouette is unremarkable. Atherosclerotic calcifications are seen in the aorta. Musculoskeletal: No acute osseous pathology. IMPRESSION: No acute cardiopulmonary disease/process. [facility], , 06/19/2024 8:05 AM
[2024-06-19 08:11] LABS: INR 1.1 (<1.2); Partial Thromboplastin Time 21.6 sec (22.0-30.0); Prothrombin Time 12.1 sec (10.0-12.5)
[2024-06-19] MEDS: AMIODARONE 360 MG in DEXTROSE 5% IN WATER 200 ML IV ONE (08:16)
[2024-06-19] MEDS: ETOMIDATE 2 MG/ML 10 ML VIAL IVP STA (08:23)
[2024-06-19 08:27] VITALS: BP 91/65; PULSE 98; RESP 28; TEMP 97.8
[2024-06-19] MEDS ORDERED: AMIODARONE 450 MG in DEXTROSE 5% IN WATER 250 ML IV SCH (14:00)
== END 2024-06-19 08:21 | disposition other institution (70) ==
LOC: EC 07:01
DX: K92.0 Hematemesis (principal); I95.9 Hypotension, unspecified; I48.91 Unspecified atrial fibrillation; R74.02 Elevation of levels of lactic acid dehydrogenase [LDH]; R79.89 Other specified abnormal findings of blood chemistry; Z79.01 Long term (current) use of anticoagulants; Z86.73 Personal history of transient ischemic attack (TIA), and cerebral infarction without residual deficits; Z87.891 Personal history of nicotine dependence
CPT/HCPCS: 36415; 93005; 86900; 86901; 80053; 82150; 83605; 83690; 85025; 85610; 85730; 86850; 86920; 71045; 99291; 96365; 96375 ×4; 36430; P9016; J0282 ×2; J2405; J2354 ×2; J2470; J7165

== ENCOUNTER 2024-08-28 08:21 | Day surgery (SDC) | payer MEDICARE, OTHER ==
[2024-08-24 15:45] VITALS: BMI 25.9
[~2024-08-28 08:21] MED LIST: LIDOCAINE 1% (10MG/ML) FOR IV START INTRADERMA PRN
[2024-08-28] MEDS: IV FLUID CONTINUATION 1,000 ML IV ONE (08:39)
[2024-08-28 08:53] VITALS: TEMP 97.6
[2024-08-28] MEDS: LACTATED RINGERS 1,000 ML IV SCH (09:01)
[2024-08-28] MEDS ORDERED: PROPOFOL 10 MG/ML 20 ML VIAL IV ONE (09:18)
--- NOTE | 2024-08-28 09:33 | P.PCN ---
Date of Procedure: 08/28/24 Procedure(s) Performed: BRIEF HISTORY: Patient is a 74-year-old, pleasant, white male scheduled of endoscopy as a part of evaluation of severe GERD with LA grade D reflux esophagitis. He presented with acute upper GI bleed in June 2024 and he had an upper endoscopy done at [facility] which revealed LA grade D reflux esophagitis. He was since on Protonix 40 mg twice daily and scheduled for repeat upper endoscopy to evaluate further. PROCEDURE PERFORMED: Esophagogastroduodenoscopy with biopsy. PREOPERATIVE DIAGNOSIS: Follow-up severe reflux esophagitis. IV sedation per anesthesia. PROCEDURE: After informed consent was obtained, the patient was brought into the endoscopy unit. IV sedation was administered by Anesthesia under continuous monitoring. Initially the Olympus GIF-140 video endoscope was inserted into the mouth. Esophagus intubated without any difficulty. It was gradually advanced into the stomach and duodenum and carefully examined. The bulb and the second part of the duodenum appeared normal. The scope at this time was withdrawn to the stomach, adequately insufflated with air, and upon careful examination, mucosa of the antrum, body, cardia and the fundus appeared normal. The scope was then withdrawn into the esophagus. Moderate size hiatal hernia noted. The GE j unction was located at 35 cm from the incisors. There was a long segment of Avitia's esophagus extending from 31 to 35 cm from the incisors and multiple biopsies were done from this area. The previously noted distal esophageal ulcerations have completely healed. The rest of the esophagus appeared normal. There were no erosions or ulcerations seen and the patient tolerated the procedure well. IMPRESSION: 1. Avitia's esophagus extending from 31 to 35 cm from the incisors status post multiple biopsies. 2. Moderate size hiatal hernia.. RECOMMENDATIONS: The findings of this examination were discussed with the patient as well as his family. He was advised to continue with Protonix 40 mg twice daily and follow antireflux measures. Follow-up with the biopsy results. If the biopsy confirms presence of Avitia's esophagus, recommend repeat upper endoscopy in 3 years..
[2024-08-28 09:42] VITALS: RESP 16
[2024-08-28 09:58] VITALS: BP 106/74; PULSE 74
== END 2024-08-28 10:22 ==
LOC: ORWHC2ENDO 08:21
PROVIDERS: ATTEND Internal Medicine Gastroenterology
DX: K21.00 Gastro-esophageal reflux disease with esophagitis, without bleeding (principal); K22.70 Barrett's esophagus without dysplasia; D72.10 Eosinophilia, unspecified; K44.9 Diaphragmatic hernia without obstruction or gangrene; I48.91 Unspecified atrial fibrillation; I25.10 Atherosclerotic heart disease of native coronary artery without angina pectoris; I10 Essential (primary) hypertension; E78.5 Hyperlipidemia, unspecified; F41.9 Anxiety disorder, unspecified; F32.A Depression, unspecified; Z87.891 Personal history of nicotine dependence; Z79.899 Other long term (current) drug therapy; Z86.73 Personal history of transient ischemic attack (TIA), and cerebral infarction without residual deficits; Z79.01 Long term (current) use of anticoagulants
CPT/HCPCS: 88305; 88313; 43239; J2704